=== PATIENT | male | born 1955 | race Caucasian/White ===

== ENCOUNTER 2017-03-31 11:13 | Inpatient (IN) ==
[2017-03-31] MEDS ORDERED: ASPIRIN 325 MG TABLET PO STA (11:37)
[2017-03-31] MEDS ORDERED: ASPIRIN 325 MG TABLET ONE (11:44)
[2017-03-31 12:22] LABS: INR 1.1; PT Patient Result 11.2 SECS; Partial Thromboplastin Time 28.6 SECS (0-40)
[2017-03-31 12:36] LABS: Alanine Aminotransferase 21 U/L (16-61); Alkaline Phosphatase 187 U/L (45-117); Aspartate Amino Transferase 14 U/L (0-37); Blood Urea Nitrogen 11 MG/DL (7-18); Calcium 9.2 MG/DL (8.5-10.1); Glucose 93 MG/DL (74-106); Osmolality,Calculated 275.5 MOS/KG (273-304); Potassium 3.5 MMOL/L (3.5-5.1); Sodium 139 MMOL/L (136-145); Total Protein 8.1 G/DL (6.4-8.3)
[2017-03-31 12:41] LABS: Basophils # 0.1 10*3/uL (0.0-0.2); Basophils % 1.4 % (0.0-0.8); Eosinophils # 0.4 10*3/uL (0.0-0.87); Eosinophils % 3.8 % (0.00-10.9); Hematocrit 42.4 VOL% (42.0-52.0); Hemoglobin 15.5 GM/DL (14.0-18.0); Immature Granulocytes % 0.3 %; Immature Granulocytes Absolute 0.03 #; Lymphocytes # 2.1 10*3/uL (1.4-4.0); Lymphocytes % 22.4 % (21.2-54.2); Mean Corpuscular HGB Conc 36.6 GM/DL (32-36); Mean Corpuscular Hemoglobin 31 PG (27-34); Mean Platelet Volume 10.3 FL (9.6-12.0); Monocytes # 0.6 10*3/uL (0.11-0.8); Monocytes % 5.9 % (1.7-12.7); Neutrophils # 6.1 10*3/uL (1.4-7.4); Neutrophils % 66.2 % (38.7-73.9); Platelet Count 217 T/CUMM (130-400); Red Blood Count 5.05 MC/CUMM (3.8-5.5); Red Cell Distribution Width 13.1 % (9.3-17.3); White Blood Count 9.3 T/CUMM (4-12)
[2017-03-31] MEDS ORDERED: amLODIPine 5 MG TABLET ONE (13:26)
[2017-03-31] MEDS ORDERED: amLODIPine 5 MG TABLET PO STA (13:32)
[2017-03-31] MEDS ORDERED: ACETAMINOPHEN 325 MG TABLET PO PRN (14:22)
[2017-03-31] MEDS ORDERED: ONDANSETRON 4 MG/2 ML VIAL IV PRN (14:22)
[2017-03-31] MEDS ORDERED: amLODIPine 10 MG TABLET PO ONE (14:30)
[2017-03-31 18:17] LABS: Risk Ratio 4.9
[2017-03-31] MEDS: DOCUSATE SODIUM 100 MG CAPSULE PO SCH (20:23)
[2017-03-31] MEDS: ATORVASTATIN 20 MG TABLET PO SCH (20:24)
[2017-03-31] MEDS ORDERED: cloNIDine 0.1 MG TABLET PO PRN (20:30)
[2017-04-01] MEDS ORDERED: ASPIRIN 325 MG TABLET PO ONE (08:18)
[2017-04-01] MEDS: DOCUSATE SODIUM 100 MG CAPSULE PO SCH ×2 (08:20→20:54)
[2017-04-01] MEDS: CLOPIDOGREL 75 MG TABLET PO SCH (08:20)
[2017-04-01] MEDS: PANTOPRAZOLE 40 MG TABLET PO SCH (08:20)
[2017-04-01] MEDS ORDERED: ALPRAZolam 0.5 MG TABLET PO PRN (14:51)
[2017-04-01] MEDS ORDERED: SERTRALINE 50 MG TABLET PO SCH (15:00)
[2017-04-01] MEDS: ATORVASTATIN 20 MG TABLET PO SCH (20:54)
[2017-04-02] MEDS ORDERED: ASPIRIN CHEW 81 MG TABLET PO SCH (09:00)
[2017-04-02] MEDS: CLOPIDOGREL 75 MG TABLET PO SCH (09:15)
[2017-04-02] MEDS: PANTOPRAZOLE 40 MG TABLET PO SCH (09:15)
[2017-04-02] MEDS: DOCUSATE SODIUM 100 MG CAPSULE PO SCH (09:16)
[2017-04-02 11:39] VITALS: BP 178/110
== END 2017-04-02 13:49 | DRG 65 ==
LOC: N.ED 11:13 → N.EDINP 12:32 → N.5E 14:21
PROVIDERS: ADMIT Family Medicine; ATTEND Family Medicine